=== PATIENT | female | born 1930 | race Caucasian/White ===

== ENCOUNTER 2017-09-28 16:42 | Inpatient (IN) | payer OTHER ==
[~2017-09-28] VITALS: Ht 160 cm; Wt 68.0 kg
[~2017-09-28 16:42] MED LIST: ASPI-321 OR; CLON0.5T3 PO; CLXOPO OP; DSY50 PO; GLCSC500400; LEVO112T6 GT; NAPR1TAB9 PO; PARO1TAB27 PO; SIMV10TA5 OR; TRIA0.1C20
[2017-09-28] MEDS ORDERED: ONDANSETRON INJ 2 MG/ML 2 ML VIAL IV STA (17:29)
[2017-09-28] MEDS ORDERED: ALBUT/IPRATROP 3MG/0.5MG NEB 3 ML VIAL INH STA ×2 (17:29→20:36)
[2017-09-28] MEDS ORDERED: MoRPHine SULFATE 4 MG/ML 1 ML CARP\\VIAL IV PRN (17:30)
--- NOTE | 2017-09-28 18:06 | DIAGNOSTIC IMAGING REPORT ---
CHEST ONE VIEW PORTABLE CLINICAL HISTORY: fall LEFT WRIST PAIN COMPARISON STUDY: No previous studies for comparison. FINDINGS: The heart is borderline enlarged. There is no failure. There is no focal pulmonary consolidation. There are no pleural effusions. There is no pneumothorax. There are minor left basilar atelectatic changes.[ IMPRESSION: No active disease in the chest. Electronically signed by: Paras Noriega M.D. 09/28/2017 6:04 PM Dictated Date/Time: 09/28/2017 6:04 PM
--- NOTE | 2017-09-28 18:07 | DIAGNOSTIC IMAGING REPORT ---
L WRIST MIN 3 VIEWS ROUTINE CLINICAL HISTORY: Left wrist pain status post trauma COMPARISON: None. DISCUSSION: No acute fractures are visualized. There is chondrocalcinosis. Arthritic changes are present at the navicular trapezium articulation and first carpal metacarpal joint. IMPRESSION: 1. Chondrocalcinosis and degenerative change 2. No acute fractures or dislocations identified. Electronically signed by: Paras Noriega M.D. 09/28/2017 6:06 PM Dictated Date/Time: 09/28/2017 6:04 PM
[2017-09-28 18:26] LABS: BASO % 0.1 %; BASO ABS # 0.01 K/uL (0-0.2); EOS % 0.9 %; EOS ABS # 0.07 K/uL (0-0.5); HEMATOCRIT 31.3 % (37-47); HEMOGLOBIN 10.3 g/dL (12.0-16.0); IG# 0.05 K/uL (0.00-0.02); LYMPH % 27.3 %; LYMPH ABS # 2.05 K/uL (1.2-3.4); MEAN CELL VOLUME 87.4 fL (80-100); MEAN CORPUSCULAR HEMOGLOBIN 28.8 pg (25-34); MEAN CORPUSCULAR HGB CONC 32.9 g/dl (32-36); MEAN PLATELET VOLUME 10.4 fL (7.4-10.4); MONO % 29.7 %; MONO ABS # 2.23 K/uL (0.11-0.59); NEUT % 41.3 %; NEUT ABS # 3.09 K/uL (1.4-6.5); PLATELET COUNT 129 K/uL (130-400); RED CELL DISTRIBUTION WIDTH SD 50.7 fL (36.4-46.3)
[2017-09-28 18:44] LABS: ALBUMIN 3.1 gm/dl (3.4-5.0); CALCIUM 8.5 mg/dl (8.5-10.1); CREATININE 0.84 mg/dl (0.60-1.20); POTASSIUM 3.9 mmol/L (3.5-5.1)
[2017-09-28 18:47] LABS: TOTAL PROTEIN 6.7 gm/dl (6.4-8.2)
[2017-09-28] MEDS ORDERED: PARO1TAB27 PO (19:02)
[2017-09-28] MEDS ORDERED: OMEP20TA PO (19:02)
[2017-09-28] MEDS ORDERED: MULT-190 PO (19:02)
[2017-09-28] MEDS ORDERED: ASPI81TA28 PO (19:02)
[2017-09-28] MEDS ORDERED: TRAZ50TA35 PO (19:02)
[2017-09-28] MEDS ORDERED: GLUC1CAP33 PO (19:03)
[2017-09-28] MEDS ORDERED: CLON0.5T3 PO (19:05)
--- NOTE | 2017-09-28 19:10 | DIAGNOSTIC IMAGING REPORT ---
CT HEAD WITHOUT CONTRAST (CT) CLINICAL HISTORY: Head pain status post trauma COMPARISON STUDY: No previous studies for comparison. TECHNIQUE: Axial CT of the brain is performed from the vertex to the skull base. IV contrast was not administered for this examination. A dose lowering technique was utilized adhering to the principles of ALARA. CT DOSE: 1007.26 mGy.cm FINDINGS: No intra or extra-axial mass lesions are visualized. There is no CT evidence of acute cortical infarction. There is no evidence of midline shift. There is no acute hemorrhage. No calvarial fractures are visualized. There are moderate white matter hypodensities likely on a small vessel basis. There is no evidence of pathologic ventricular dilatation. There is no evidence of acute sinusitis IMPRESSION: No acute intracranial findings Electronically signed by: Paras Noriega M.D. 09/28/2017 7:09 PM Dictated Date/Time: 09/28/2017 7:08 PM
--- NOTE | 2017-09-28 19:14 | DIAGNOSTIC IMAGING REPORT ---
CT OF THE CERVICAL SPINE CLINICAL HISTORY: Neck pain status post trauma COMPARISON STUDY: No previous studies for comparison. CT DOSE: TECHNIQUE: CT scan of the cervical spine was performed from the skull base to the thoracic inlet. Images are reviewed in the axial, sagittal, and coronal planes. IV contrast was not administered for this examination. A dose lowering technique was utilized adhering to the principles of ALARA. FINDINGS: The visualized portions of the lung apices reveal no evidence of pneumothorax. The prevertebral soft tissues are normal. No fractures or traumatic subluxations are visualized. There is reversal the normal cervical lordosis. Minimal anterolisthesis of C2 on C3 and C3 on C4 is felt to be secondary to neck flexion. IMPRESSION: 1. Reversal normal cervical lordosis 2. No fractures identified 3. Mild anterolisthesis of C2 on C3 and C3 on C4, likely secondary to neck flexion. If there is concern over the presence of a ligamentous injury, an MRI could be obtained in follow-up. Electronically signed by: Paras Noriega M.D. 09/28/2017 7:13 PM Dictated Date/Time: 09/28/2017 7:09 PM
[2017-09-28] MEDS ORDERED: METHYLPREDNISOLONE 125 MG VIAL IV STA (20:36)
[2017-09-28] MEDS ORDERED: HEPARIN SOD 5000 UNIT/0.5 ML CARP SQ SCH (22:45)
[2017-09-28] MEDS ORDERED: ACETAMINOPHEN 325 MG TAB PO PRN (22:45)
[2017-09-28 22:58] VITALS: O2SAT 90; Ht 160 cm; Wt 68.0 kg
[2017-09-28] MEDS ORDERED: LEVO137T3 PO (22:59)
--- NOTE | 2017-09-28 23:04 | History and Physical ---
History & Physical Date & Time of Service: Sep 28, 2017 at 22:30 Chief Complaint: Fell T-1,L Hand/Arm Cannot Move W/O Pain,Swollen Primary Care Physician: Everton Winkler M.D. (MEDICAL) History of Present Illness Source: patient, family (duaghter at bedside), clinic records, hospital records This is an 87yo F with a PMH of hypothyroidism, anxiety, HLD, GERD, osteoporosis and other medical problems listed below who presents with left wrist pain x 2 days. History was obtained from daughter due to patient being extremely hard of hearing. Two nights ago, patient was up at 2am and was trying to swat a bug when she lost her balance and fell forward onto her chest, face and L wrist. Daughter clarifies that this is normal behavior for patient, who gets up throughout the night. Daughter, who lives with patient, heard a thud and found patient face down as described. Denies any LOC. During the fall, patient also cut her upper lip. L arm pain persisted throughout the day so daughter brought patient to ED for further evaluation. Left wrist XRs did not show any acute fracture or dislocation so wrist was iced and splinted. Denies any headache, visual changes, confusion or active bleeding. Incidentally patient was found to be hypoxic at 88% on admission. Patient is not on O2 at home and does not regularly check her home O2. Per daughter, O2 sats are normally in the 90s during out-patient vitals checks. Patient quit smoking in 2007 after a 70 year history. Daughter states that she has a chronic cough but does not have dyspnea on exertion or SOB. Had a significant URI over the summer that lasted for months. Has never been evaluated for COPD. Denies a history of asthma. Endorses chronic cough but denies sore throat, congestion, dyspnea on exertion, SOB, palpitations, chest pain, abd pain, nausea, vomiting or LE swelling. Past Medical/Surgical History Medical Problems: (1) Anxiety Status: Chronic (2) GERD (gastroesophageal reflux disease) Status: Chronic (3) Hyperlipidemia Status: Chronic (4) Hypothyroidism Status: Chronic (5) Osteoporosis Status: Chronic (6) Skin cancer Status: Resolved (7) Vitamin D deficiency Status: Chronic Family History Cancer Gallbladder disease Kidney disease Kidney stones Lung disease Social History Smoking Status: Former Smoker (70 pack years ) Alcohol Use: none Housing status: lives with family (in an apartment connected to family home) Multi-Drug Resistant Organisms History of MDRO: No Allergies Coded Allergies: No Known Allergies (Verified Allergy, Unknown, 04/01/05) Home Medications Scheduled Aspirin (Aspirin Ec), 81 MG PO DAILY Clonazepam (Klonopin), 0.5 MG PO BID Glucosamine-Chondroitin (Glucosamine & Chondroitin 500-400 mg), 1 CAP PO DAILY Levothyroxine Sodium (Levothyroxine Sodium), 1 TAB PO DAILY Ocuvite Preservision (Ocuvite Preservision), 1 TAB PO DAILY Omeprazole (Omeprazole), 20 MG PO DAILY Paroxetine (Paxil), 20 MG PO DAILY Simvastatin (Zocor), 10 MG OR DAILY Trazodone Hcl (Trazodone), 50 MG PO HS Review of Systems Ten systems reviewed and negative except as noted in the HPI. Physical Exam Vital Signs Date Time Temp Pulse Resp B/P (MAP) Pulse Ox O2 Delivery O2 Flow Rate FiO2 09/28/17 22:25 93 20 104/74 94 Nasal Cannula 4.0 09/28/17 21:40 91 09/28/17 20:47 92 24 137/65 98 Mask 6.0 09/28/17 19:43 87 20 119/59 99 Nasal Cannula 3.0 09/28/17 18:59 87 18 131/69 93 Nasal Cannula 2.0 09/28/17 17:25 94 09/28/17 16:59 94 Nasal Cannula 2.0 09/28/17 16:59 94 Nasal Cannula 2.0 09/28/17 16:47 36.9 99 20 111/71 88 Room Air General Appearance: no apparent distress, + pertinent finding (Breathing comfortably with NC O2) Head: normocephalic, atraumatic Eyes: normal inspection, PERRL, sclerae normal ENT: normal ENT inspection (extremely hard of hearing), pharynx normal (moist mucous membranes) Neck: supple, thyroid normal, trachea midline Respiratory/Chest: chest non-tender, no respiratory distress, no accessory muscle use, + pertinent finding (Faint expiratory wheezes) Cardiovascular: regular rate, rhythm, no murmur, normal peripheral pulses Abdomen/GI: non tender, soft, no organomegaly Back: normal inspection Extremities/Musculoskelatal: normal inspection, no calf tenderness, normal capillary refill, no pedal edema Neurologic/Psych: no motor/sensory deficits, alert, normal mood/affect, oriented x 3 (Not oriented to situation ) Skin: normal color, warm/dry, + pertinent finding (Brusing to chin, upper lip with scab. L wrist splinted. ) Diagnostics Laboratory Results Results Past 24 Hours Test 09/28/17 18:15 Range/Units White Blood Count 7.50 4.8-10.8 K/uL Red Blood Count 3.58 4.2-5.4 M/uL Hemoglobin 10.3 12.0-16.0 g/dL Hematocrit 31.3 37-47 % Mean Corpuscular Volume 87.4 80-100 fL Mean Corpuscular Hemoglobin 28.8 25-34 pg Mean Corpuscular Hemoglobin Concent 32.9 32-36 g/dl Platelet Count 129 130-400 K/uL Mean Platelet Volume 10.4 7.4-10.4 fL Neutrophils (%) (Auto) 41.3 % Lymphocytes (%) (Auto) 27.3 % Monocytes (%) (Auto) 29.7 % Eosinophils (%) (Auto) 0.9 % Basophils (%) (Auto) 0.1 % Neutrophils # (Auto) 3.09 1.4-6.5 K/uL Lymphocytes # (Auto) 2.05 1.2-3.4 K/uL Monocytes # (Auto) 2.23 0.11-0.59 K/uL Eosinophils # (Auto) 0.07 0-0.5 K/uL Basophils # (Auto) 0.01 0-0.2 K/uL RDW Standard Deviation 50.7 36.4-46.3 fL RDW Coefficient of Variation 16.0 11.5-14.5 % Immature Granulocyte % (Auto) 0.7 % Immature Granulocyte # (Auto) 0.05 0.00-0.02 K/uL Sodium Level 136 136-145 mmol/L Potassium Level 3.9 3.5-5.1 mmol/L Chloride Level 101 98-107 mmol/L Carbon Dioxide Level 28 21-32 mmol/L Anion Gap 7.0 3-11 mmol/L Blood Urea Nitrogen 15 7-18 mg/dl Creatinine 0.84 0.60-1.20 mg/dl Est Creatinine Clear Calc Drug Dose 41.2 ml/min Estimated GFR () 71.4 Estimated GFR (Non- 61.6 BUN/Creatinine Ratio 17.5 10-20 Random Glucose 90 70-99 mg/dl Calcium Level 8.5 8.5-10.1 mg/dl Total Bilirubin 0.4 0.2-1 mg/dl Aspartate Amino Transf (AST/SGOT) 15 15-37 U/L Alanine Aminotransferase (ALT/SGPT) 14 12-78 U/L Alkaline Phosphatase 65 45-117 U/L Total Protein 6.7 6.4-8.2 gm/dl Albumin 3.1 3.4-5.0 gm/dl Globulin 3.6 2.5-4.0 gm/dl Albumin/Globulin Ratio 0.9 0.9-[address] head: IMPRESSION: No acute intracranial findings Left wrist XR: IMPRESSION: 1. Chondrocalcinosis and degenerative change 2. No acute fractures or dislocations identified. CT cervical spine: IMPRESSION: 1. Reversal normal cervical lordosis 2. No fractures identified 3. Mild anterolisthesis of C2 on C3 and C3 on C4, likely secondary to neck flexion. If there is concern over the presence of a ligamentous injury, an MRI could be obtained in follow-up. Impression Assessment and Plan This is an 87yo F with a PMH of hypothyroidism, anxiety, osteoporosis and other medical problems listed below who presents with left wrist pain x 2 days. Hypoxia 2/2 COPD exacerbation: -Incidentally found to be hypoxic to 88% -O2 saturation decreases to 85-86% with exertion like sitting upright -Has a 70 year smoking history, so likely underlying COPD, although undiagnosed -Saturating well on 6L NC O2. Wean as tolerated -Likely will need to be sent home on chronic O2 -Solu-medrol, duonebs -Echo in AM to rule out cardiac etiology -CXR clear, no leukocytosis, so no antibiotics given. Left wrist pain: -S/p mechanical fall 2 nights ago -Wrist XR without dislocation or fracture -Splinted in ED -Pain control -Ortho out-patient follow up Mechanical fall: -No LOC -CT head without acute changes -Bruising observed on chin, lip, L arm -No active bleeding -Pain control Hypothyroidism: -Dose recently increased -Cont synthroid Anxiety: -Cont paxil, klonopin HLD: -Cont statin GERD: -Cont PPI DVT Ppx: SQ heparin Code status: FULL per discussion with daughter (POA) PCP: [facility] Dispo: Admitted to [facility]. Plan to return home once medically stable. Patient seen in collaboration with Dr. Molina. Please see addendum. Attending Physician, Dr. Molina. addendum I have seen and assessed the patient with SADIA Tatum and agree with the assessment and plan. This is an 87 year old F who presented to the ED primarily for treatment of left wrist pain. However was admitted to internal medicine hospitalist service for hypoxia. Patient not diagnosed with COPD in the past however has significant smoking history. For treatment of hypoxia, have started patient on nebulizer treatments on solumedrol. There does not appear to be lung infiltrates so antibiotics is to be held at this time. Alternatively, patient may have cardiac reasons for hypoxia and echocardiogram has been ordered to investigate whether hypoxia may be from pulmonary hypertension or valvular disease. Otherwise patient is clinically stable. Level of Care Med/Surg Resuscitation Status FULL RESUSCITATION VTE Prophylaxis VTE Risk Assessment Done? Y/N: Yes Risk Level: Moderate Given or contraindicated: Unfractionated heparin SQ
[2017-09-28] MEDS ORDERED: TRAMADOL HCL 50 MG TAB PO PRN (23:15)
[2017-09-28 23:45] VITALS: BP 116/66; PULSE 88; TEMP 36.9; O2SAT 93
--- NOTE | 2017-09-29 00:07 | EMERGENCY ROOM VISIT NOTE ---
History Report prepared by Zahira: Florentino Duffy Under the Supervision of: Dr. Van Santiago M.D. First contact with patient: 17:11 Chief Complaint: FALL Stated Complaint: FELL T-1,L HAND/ARM CANNOT MOVE W/O PAIN,SWOLLEN History of Present Illness The patient is an 87 year old female who presents to the Emergency Room with complaints of a sudden fall occurring yesterday morning. The patient's daughter states that the patient was trying to swat a lady bug and lost her balance. She fell on outstretched hand and hit her face, chest, and her left forearm. The patient states that she cut her lip, and currently she is having some chest pain and left forearm pain. She additionally states that she is having chronic back pain, though she is not having any more back pain than usual after the fall. The patient's left forearm pain is worsened with movement and palpation. Additionally, the patient's daughter states that the patient was a smoker for 70 years, and she quit ten years ago. Pt denies LOC, headache, visual changes, neck pain, breathing difficulties, nausea, vomiting, abdominal pain, numbness, weakness, open wounds, active bleeding, or other complaints. Source of History: patient Onset: yesterday morning Position: other (global) Quality: other (fall) Timing: other (sudden) Modifying Factors (Worsening): movement, other (palpation) Associated Symptoms: + chest pain Note: Associated symptoms: Left forearm pain Review of Systems See HPI for pertinent positives and negatives. A total of ten systems were reviewed and were otherwise negative. Past Medical & Surgical Medical Problems: (1) Anxiety (2) GERD (gastroesophageal reflux disease) (3) Hyperlipidemia (4) Hypothyroidism (5) Osteoporosis (6) Skin cancer (7) Vitamin D deficiency Surgical Problems: (1) History of appendectomy Family History Cancer Gallbladder disease Kidney disease Kidney stones Lung disease Social History Smoking Status: Former Smoker Marital Status: Housing Status: lives with family Occupation Status: retired Current/Historical Medications Scheduled Aspirin (Aspirin Ec), 81 MG PO DAILY Clonazepam (Klonopin), 0.5 MG PO BID Glucosamine-Chondroitin (Glucosamine & Chondroitin 500-400 mg), 1 CAP PO DAILY Levothyroxine Sodium (Levothyroxine Sodium), 1 TAB PO DAILY Ocuvite Preservision (Ocuvite Preservision), 1 TAB PO DAILY Omeprazole (Omeprazole), 20 MG PO DAILY Paroxetine (Paxil), 20 MG PO DAILY Simvastatin (Zocor), 10 MG OR DAILY Trazodone Hcl (Trazodone), 50 MG PO HS Allergies Coded Allergies: No Known Allergies (Verified Allergy, Unknown, 04/01/05) Physical Exam Vital Signs Date Time Temp Pulse Resp B/P (MAP) Pulse Ox O2 Delivery O2 Flow Rate FiO2 09/28/17 22:25 93 20 104/74 94 Nasal Cannula 4.0 09/28/17 21:40 91 09/28/17 20:47 92 24 137/65 98 Mask 6.0 09/28/17 19:43 87 20 119/59 99 Nasal Cannula 3.0 09/28/17 18:59 87 18 131/69 93 Nasal Cannula 2.0 09/28/17 17:25 94 09/28/17 16:59 94 Nasal Cannula 2.0 09/28/17 16:59 94 Nasal Cannula 2.0 09/28/17 16:47 36.9 99 20 111/71 88 Room Air Physical Exam GENERAL: Awake, alert, well appearing, no distress. Hard of hearing. HEAD: Bruise on the chin. Abrasion to the upper lip. Normocephalic. No mckenna sign. No raccoon eyes. EYES: Normal conjunctiva. PERRL. EARS: External ears normal. Right TM normal. Left TM normal. NOSE: Atraumatic OROPHARYNX: Lips, tongue, and mucosa unremarkable. No erythema or exudate. NECK: Supple No tracheal deviation or JVD. No posterior midline tenderness. No step offs noted. RESPIRATORY: CTA bilaterally CARDIAC: regular rate, normal rhythm. ABDOMEN: Inspection reveals no abnormalities. Soft, non distended. No tenderness to palpation. No hernias. BACK: No midline step offs or tenderness to palpation. Unremarkable. PELVIS: Stable to rock. SKIN: Normal. LYMPH: No adenopathy. MUSCULOSKELETAL: Tenderness in the left wrist over the snuff box. Range of motion is limited. No active bleeding. Lower extremities and right upper extremity are atraumatic. NEURO: GCS 15. Normal sensorium. No sensory or motor deficits noted. Medical Decision & Procedures ER Provider Diagnostic Interpretation: Radiology results as stated below per my review and radiologist interpretation: L WRIST MIN 3 VIEWS ROUTINE CLINICAL HISTORY: Left wrist pain status post trauma COMPARISON: None. DISCUSSION: No acute fractures are visualized. There is chondrocalcinosis. Arthritic changes are present at the navicular trapezium articulation and first carpal metacarpal joint. IMPRESSION: 1. Chondrocalcinosis and degenerative change 2. No acute fractures or dislocations identified. Electronically signed by: Paras Noriega M.D. 09/28/2017 6:06 PM Dictated Date/Time: 09/28/2017 6:[address] HEAD WITHOUT CONTRAST (CT) CLINICAL HISTORY: Head pain status post trauma COMPARISON STUDY: No previous studies for comparison. TECHNIQUE: Axial CT of the brain is performed from the vertex to the skull base. IV contrast was not administered for this examination. A dose lowering technique was utilized adhering to the principles of ALARA. CT DOSE: 1007.26 mGy.cm FINDINGS: No intra or extra-axial mass lesions are visualized. There is no CT evidence of acute cortical infarction. There is no evidence of midline shift. There is no acute hemorrhage. No calvarial fractures are visualized. There are moderate white matter hypodensities likely on a small vessel basis. There is no evidence of pathologic ventricular dilatation. There is no evidence of acute sinusitis IMPRESSION: No acute intracranial findings Electronically signed by: Paras Noriega M.D. 09/28/2017 7:09 PM Dictated Date/Time: 09/28/2017 7:08 PM CHEST ONE VIEW PORTABLE CLINICAL HISTORY: fall LEFT WRIST PAIN COMPARISON STUDY: No previous studies for comparison. FINDINGS: The heart is borderline enlarged. There is no failure. There is no focal pulmonary consolidation. There are no pleural effusions. There is no pneumothorax. There are minor left basilar atelectatic changes.[ IMPRESSION: No active disease in the chest. Electronically signed by: Paras Noriega M.D. 09/28/2017 6:04 PM Dictated Date/Time: 09/28/2017 6:[address] OF THE CERVICAL SPINE CLINICAL HISTORY: Neck pain status post trauma COMPARISON STUDY: No previous studies for comparison. CT DOSE: TECHNIQUE: CT scan of the cervical spine was performed from the skull base to the thoracic inlet. Images are reviewed in the axial, sagittal, and coronal planes. IV contrast was not administered for this examination. A dose lowering technique was utilized adhering to the principles of ALARA. FINDINGS: The visualized portions of the lung apices reveal no evidence of pneumothorax. The prevertebral soft tissues are normal. No fractures or traumatic subluxations are visualized. There is reversal the normal cervical lordosis. Minimal anterolisthesis of C2 on C3 and C3 on C4 is felt to be secondary to neck flexion. IMPRESSION: 1. Reversal normal cervical lordosis 2. No fractures identified 3. Mild anterolisthesis of C2 on C3 and C3 on C4, likely secondary to neck flexion. If there is concern over the presence of a ligamentous injury, an MRI could be obtained in follow-up. Electronically signed by: Paras Noriega M.D. 09/28/2017 7:13 PM Dictated Date/Time: 09/28/2017 7:09 PM Laboratory Results 09/28/17 18:15 Red Blood Count 3.58, Mean Corpuscular Volume 87.4, Mean Corpuscular Hemoglobin 28.8, Mean Corpuscular Hemoglobin Concent 32.9, Mean Platelet Volume 10.4, Neutrophils (%) (Auto) 41.3, Lymphocytes (%) (Auto) 27.3, Monocytes (%) (Auto) 29.7, Eosinophils (%) (Auto) 0.9, Basophils (%) (Auto) 0.1, Neutrophils # (Auto ) 3.09, Lymphocytes # (Auto) 2.05, Monocytes # (Auto) 2.23, Eosinophils # (Auto ) 0.07, Basophils # (Auto) 0.01 09/28/17 18:15 Test 09/28/17 18:15 White Blood Count 7.50 K/uL (4.8-10.8) Red Blood Count 3.58 M/uL (4.2-5.4) Hemoglobin 10.3 g/dL (12.0-16.0) Hematocrit 31.3 % (37-47) Mean Corpuscular Volume 87.4 fL (80-100) Mean Corpuscular Hemoglobin 28.8 pg (25-34) Mean Corpuscular Hemoglobin Concent 32.9 g/dl (32-36) Platelet Count 129 K/uL (130-400) Mean Platelet Volume 10.4 fL (7.4-10.4) Neutrophils (%) (Auto) 41.3 % Lymphocytes (%) (Auto) 27.3 % Monocytes (%) (Auto) 29.7 % Eosinophils (%) (Auto) 0.9 % Basophils (%) (Auto) 0.1 % Neutrophils # (Auto) 3.09 K/uL (1.4-6.5) Lymphocytes # (Auto) 2.05 K/uL (1.2-3.4) Monocytes # (Auto) 2.23 K/uL (0.11-0.59) Eosinophils # (Auto) 0.07 K/uL (0-0.5) Basophils # (Auto) 0.01 K/uL (0-0.2) RDW Standard Deviation 50.7 fL (36.4-46.3) RDW Coefficient of Variation 16.0 % (11.5-14.5) Immature Granulocyte % (Auto) 0.7 % Immature Granulocyte # (Auto) 0.05 K/uL (0.00-0.02) Anion Gap 7.0 mmol/L (3-11) Est Creatinine Clear Calc Drug Dose 41.2 ml/min Estimated GFR () 71.4 Estimated GFR (Non- 61.6 BUN/Creatinine Ratio 17.5 (10-20) Calcium Level 8.5 mg/dl (8.5-10.1) Total Bilirubin 0.4 mg/dl (0.2-1) Aspartate Amino Transf (AST/SGOT) 15 U/L (15-37) Alanine Aminotransferase (ALT/SGPT) 14 U/L (12-78) Alkaline Phosphatase 65 U/L (45-117) Total Protein 6.7 gm/dl (6.4-8.2) Albumin 3.1 gm/dl (3.4-5.0) Globulin 3.6 gm/dl (2.5-4.0) Albumin/Globulin Ratio 0.9 (0.9-2) Laboratory results reviewed by me Medications Administered Medications (Trade) Dose Ordered Sig/Lola Route Start Time Stop Time Status Last Admin Dose Admin Ondansetron HCl (Zofran Inj) 4 mg NOW STAT IV 09/28/17 17:29 09/28/17 17:33 DC 09/28/17 18:11 4 MG Morphine Sulfate (MoRPHine SULFATE INJ) 4 mg Q15M PRN IV 09/28/17 17:30 10/12/17 17:29 09/28/17 18:12 4 MG Albuterol/ Ipratropium (Duoneb) 3 ml NOW STAT INH 09/28/17 17:29 09/28/17 17:33 DC 09/28/17 18:11 3 ML Methylprednisolone Sodium Succinate (Solu-Medrol IV) 125 mg NOW STAT IV 09/28/17 20:36 09/28/17 20:38 DC 09/28/17 20:45 125 MG Albuterol/ Ipratropium (Duoneb) 3 ml NOW STAT INH 09/28/17 20:36 09/28/17 20:38 DC 09/28/17 20:45 3 ML ED Course 171: The patient was evaluated in room B3. A complete history and physical exam was performed. 1728: DuoNeb 3ml INH, Zofran 4mg IV 1729: Morphine Sulfate 4mg IV 1944: Upon reexamination, the patient was still needing oxygen. 2035: DuoNeb 3ml INH, Solu-Medrol 125mg IV 2110: Upon reexamination, the patient was doing okay. I discussed the test results and treatment plan with her. The patient will be evaluated for further management. 2124: Discussed the patient's case with Tayla Torres. The patient will be evaluated for further treatment and disposition. Medical Decision Triage Nursing notes reviewed. The patient's presentation and history were concerning for a fall. Etiologies such as soft tissue injury, fracture, dislocation, neurovascular compromise, compartment syndrome, as well as others were entertained. The patient presented after an accidental fall yesterday. She had mild soft tissue contusions and injury to her face. She had no neck discomfort on physical examination and had good range of motion. She did have moderate left wrist tenderness. There was some associated bruising. Pain is mainly with movement of the wrist. She had also noted some wheezing prior to arrival. The patient's pulse oximetry was mildly low. She has a significant smoking history. She was placed on supplemental oxygen and responded well. Her CT imaging was unremarkable. Radiology questioned her anterolisthesis. The patient was reexamined and had no complaints of neck pain but notes a long history of intermittent aches and pains in her neck. She currently has none. The patient had a splint placed on her arm for comfort and immobilization. X- ray imaging revealed significant arthritic change without evidence of fracture or dislocation. The patient was neurovascularly intact. Chest imaging did not reveal any evidence of pneumonia or thoracic injury. She was given 2 breathing treatments and a dose of IV Solu-Medrol. She was still requiring supplemental oxygen which is not normal for her. Because of this further evaluation and management in the hospital is necessary. Consultation was made with internal medicine. The patient was evaluated in the Emergency Room for further management. Medication Reconcilliation Current Medication List: was personally reviewed by me Blood Pressure Screening Patient's blood pressure: Normal blood pressure Consults Time Called: 2110 Consulting Physician: Tayla Tatum Returned Call: [phone] Discussed the patient's case with Tayla Torres. The patient will be evaluated for further treatment and disposition. Impression Primary Impression: Hypoxia Additional Impressions: COPD (chronic obstructive pulmonary disease) Contusion of left wrist Facial contusion Fall Scribe Attestation The scribe's documentation has been prepared under my direction and personally reviewed by me in its entirety. I confirm that the note above accurately reflects all work, treatment, procedures, and medical decision making performed by me. Departure Information Dispostion Being Evaluated By Hospitalist Referrals Everton Winkler M.D. (MEDICAL) (PCP) Patient Instructions My [facility] Problem Qualifiers
[2017-09-29] MEDS: METHYLPREDNISOLONE IV 40 MG in SYRINGE 0 ML IV SCH ×2 (04:07→11:37)
[2017-09-29] MEDS: LEVOTHYROXINE 137 MCG TAB PO SCH (06:37)
[2017-09-29 07:14] VITALS: BP 116/66; PULSE 73; TEMP 36.7; O2SAT 93
[2017-09-29 07:16] VITALS: PULSE 75; O2SAT 92
[2017-09-29] MEDS: ALBUT/IPRATROP 3MG/0.5MG NEB 3 ML VIAL INH SCH ×3 (07:16→19:02)
[2017-09-29 08:00] VITALS: O2SAT 93
[2017-09-29] MEDS ORDERED: PNEUMOCOCCAL ADMINISTRATION CHARGE ONE (08:00)
[2017-09-29] MEDS ORDERED: PNEUMOCOCCAL POLYSACCHARIDES 25 MCG/0.5 ML VIAL/SYR IM. ONE (08:00)
[2017-09-29 08:13] LABS: HEMATOCRIT 31.3 % (37-47); HEMOGLOBIN 10.3 g/dL (12.0-16.0); MEAN CELL VOLUME 87.7 fL (80-100); MEAN CORPUSCULAR HEMOGLOBIN 28.9 pg (25-34); MEAN CORPUSCULAR HGB CONC 32.9 g/dl (32-36); MEAN PLATELET VOLUME 10.3 fL (7.4-10.4); PLATELET COUNT 122 K/uL (130-400); RED CELL DISTRIBUTION WIDTH CV 16.2 % (11.5-14.5); RED CELL DISTRIBUTION WIDTH SD 51.3 fL (36.4-46.3); WHITE BLOOD COUNT 4.43 K/uL (4.8-10.8)
[2017-09-29 08:41] LABS: CALCIUM 8.4 mg/dl (8.5-10.1); CREATININE 0.95 mg/dl (0.60-1.20); POTASSIUM 4.3 mmol/L (3.5-5.1)
[2017-09-29] MEDS: CLONAZEPAM 0.5 MG TAB PO SCH ×2 (08:55→20:49)
[2017-09-29] MEDS: CEROVITE ADV FORMULA TAB PO SCH (08:55)
[2017-09-29] MEDS: ASPIRIN 81 MG ECTAB PO SCH (08:56)
[2017-09-29] MEDS: PAROXETINE 20 MG TAB PO SCH (08:56)
[2017-09-29] MEDS: PANTOprazole SOD 40 MG TAB PO SCH (08:56)
[2017-09-29] MEDS ORDERED: OPTIRAY 320 IV PRN (14:00)
[2017-09-29 15:28] VITALS: BP 122/72; PULSE 89; TEMP 36.7; O2SAT 92
--- NOTE | 2017-09-29 17:41 | ECHOCARDIOGRAM REPORT ---
*NOTICE TO RECEIVING CONSTITUTION PARTY AGENCY This information is strictly Confidential and protected under [place] law. [place] law prohibits you from making any further disclosure of this information unless further disclosure is expressly permitted by the written consent of the person to whom it pertains or is authorized by law. A general authorization for the release of medical or other information is not sufficient for this purpose. Hospital accepts no responsibility if the information is made available to any other person, INCLUDING THE PATIENT. Interpretation Summary * Name: TRISTEN RIVERO Study Date: 09/29/2017 01:21 PM BP: 116/66 mmHg * Patient Location: .[id number]\S\2 HR: 88 * : 1930 (M/d/yyyy) Gender: Female Height: 63 in * Age: 87 yrs Ethnicity: [place] Weight: 143 lb * Ordering Physician: Tayla Tatum * Referring Physician: Self, Referred * Performed By: Rema Amaya RCS * * Reason For Study: HYPOXIA * BSA: 1.7 m2 * The study was technically adequate. * There is no comparison study available. * -- Conclusions -- * The left ventricle is hyperdynamic. * Ejection Fraction = >70 %. * There is mild concentric left ventricular hypertrophy. * Aortic valve sclerosis moderate, without significant aortic valvular stenosis. * There is trace tricuspid regurgitation. * The estimated systolic PAP is 44mmHg. Procedure Details * A complete two-dimensional transthoracic echocardiogram was performed (2D, M-mode, Doppler and color flow Doppler). Left Ventricle * The left ventricle is normal in size. * There is no thrombus. * There is mild concentric left ventricular hypertrophy. * Ejection Fraction = >70 %. * The left ventricle is hyperdynamic. * The left ventricular wall motion is normal. Right Ventricle * The right ventricle is normal size. * The right ventricular systolic function is normal as assessed by tricuspid annular plane systolic excursion (TAPSE) (normal >1.5 cm). Atria * The left atrial size is normal. * Right atrial size is normal. * There is no evidence of atrial septal defect, but resolution does not allow assessment for a patent foramen ovale. Mitral Valve * The mitral valve leaflets appear thickened, but open well. * There is no mitral valve stenosis. * Significant mitral regurgitation is absent. Tricuspid Valve * The tricuspid valve is normal. * There is no tricuspid stenosis. * There is trace tricuspid regurgitation. * The estimated systolic PAP is 44mmHg. Aortic Valve * The aortic valve is trileaflet. * Aortic valve sclerosis moderate, without significant aortic valvular stenosis. * Aortic stenosis is absent. * There is no significant aortic regurgitation. Pulmonic Valve * The pulmonary valve is not well seen, but the Doppler examination is normal without significant regurgitation or stenosis. Great Vessels * The aortic root is normal size. Pericardium/Pleural * There is no pericardial effusion. Great Vessels * IVC not well visualized. Left Ventricular Diastolic Function * Pulse wave TDI of the anterior and posterior mitral annulas demonstrates normal LV relaxation MMode 2D Measurements and Calculations IVSd 1.4 cm IVSs 1.7 cm LVIDd 3.2 cm LVIDs 2.5 cm LVPWd 1.2 cm LVPWs 1.6 cm IVS/LVPW 1.2 FS 23.2 % EDV(Teich) 42.3 ml ESV(Teich) 22.1 ml EF(Teich) 47.8 % EDV(cubed) 34.1 ml ESV(cubed) 15.4 ml EF(cubed) 54.8 % % IVS thick 23.2 % % LVPW thick 36.3 % LV mass(C)d 139.2 grams LV mass(C)dI 83.0 grams/m\S\2 LV mass(C)s 155.7 grams LV mass(C)sI 92.9 grams/m\S\2 SV(Teich) 20.2 ml SI(Teich) 12.0 ml/m\S\2 SV(cubed) 18.6 ml SI(cubed) 11.1 ml/m\S\2 Ao root diam 3.1 cm Ao root area 7.3 cm\S\2 ACS 1.3 cm LA dimension 2.6 cm LA/Ao 0.84 LVOT diam 2.0 cm LVOT area 3.3 cm\S\2 LVAd ap4 27.0 cm\S\2 LVLd ap4 7.4 cm EDV(MOD-sp4) 81.1 ml EDV(sp4-el) 83.3 ml LVAs ap4 13.1 cm\S\2 LVLs ap4 6.3 cm ESV(MOD-sp4) 24.5 ml ESV(sp4-el) 23.1 ml EF(MOD-sp4) 69.8 % EF(sp4-el) 72.3 % SV(MOD-sp4) 56.7 ml SI(MOD-sp4) 33.8 ml/m\S\2 SV(sp4-el) 60.2 ml SI(sp4-el) 35.9 ml/m\S\2 Doppler Measurements and Calculations MV E max antwan 101.9 cm/sec MV A max antwan 142.9 cm/sec MV E/A 0.71 MV P1/2t max antwan 110.4 cm/sec MV P1/2t 70.8 msec MVA(P1/2t) 3.1 cm\S\2 MV dec slope 456.8 cm/sec\S\2 MV dec time 0.17 sec Ao V2 max 160.5 cm/sec Ao max PG 10.3 mmHg Ao max PG (full) 4.3 mmHg AUTUMN(V,A) 2.5 cm\S\2 AUTUMN(V,D) 2.5 cm\S\2 LV V1 max PG 6.0 mmHg LV V1 max 122.9 cm/sec TR max antwan 321.0 cm/sec
--- NOTE | 2017-09-29 17:48 | Progress Note ---
Internal Med Progress Note Date of Service: Sep 29, 2017. Provider Documentation: SUBJECTIVE: feels fine offers no complain , not ladan 02 talking in loud voice , very excited pt's Daughter and Son in law present at bedside concerned pt being so " hyper " -thinks possible related to IV steroids spo2 in room air noted to be 78% 3 L 02 applied via nasal canula ,remains hypoxic with spo2 in upper 80's increased 02 to 4 L to maintain spo2 90% pt denies of any feeling of SOB was not on home 02 per Daughter , pt able to climb up stairs with out any discomfort OBJECTIVE: Vital Signs-as noted below Exam: General-no sign of distress , very excited, laughing with family members Eyes-sclera non icteric , PERRLA/EOMI ENT-moist oral mucosa Neck-no thyromegaly , trachea mid line Lungs-CTA , no wheeze or rales noted Heart-regular , S1/S2 , no JVD , no lower ext edema Abdomen-soft, non tender , active bowel sound Extremities-no rash or deformity Neuro-Awake and alert ,very hard of hearing , no focal neurological deficit Lab data as noted below. ASSESSMENT & PLAN: This is an 87yo F with a PMH of hypothyroidism, anxiety, osteoporosis and other medical problems listed below who presents with left wrist pain x 2 days. ACUTE HYPOXEMIC RESPIRATORY FAILURE -Incidentally found to be hypoxic to 88% ( WAS NOT ON HOME 02 ) -O2 saturation decreases to 85-86% with minimum exertion /change of position -at present requiring 4 L 02 pt denies of any symptom of SOB even while spo2 drops to upper 70's -Has a 70 year smoking history, possibly has underlying COPD, nor formal diagnosis made , no PFT noted in past -will D/c IV solu Medrol , no wheeze noted started on PO prednisone taper - dedra -Echo : The left ventricle is hyperdynamic. * Ejection Fraction = >70 %. * There is mild concentric left ventricular hypertrophy. * Aortic valve sclerosis moderate, without significant aortic valvular stenosis. * There is trace tricuspid regurgitation. * The estimated systolic PAP is 44mmHg. -CXR -no active disease D dimer elevated > 1200 CT chest with contrast ordered to R/O PE -pulmonary eval requested Left wrist pain: -S/p mechanical fall 2 nights ago -Wrist XR without dislocation or fracture -Splinted in ED -Pain control -Ortho out-patient follow up Mechanical fall: -fell forward as she lost balance while trying to kill a bug -CT head without acute changes -Bruising observed on chin, lip, L arm -No active bleeding -Pain control Hypothyroidism: -Dose recently increased -Cont synthroid Anxiety: -Cont paxil, klonopin HLD: -Cont statin GERD: -Cont PPI DVT Ppx: SQ heparin Code status: FULL per discussion with daughter (POA) PCP: Peterson ELIAS pt lives with Daughter has been independent in her ADL's PT/OT eval requested may need 2 step oximetry test prior to discharge Vital Signs: Date Time Temp Pulse Resp B/P (MAP) Pulse Ox O2 Delivery O2 Flow Rate FiO2 09/29/17 19:07 102 16 78 Room Air 09/29/17 16:00 Nasal Cannula 3.0 09/29/17 15:28 36.7 89 19 122/72 (89) 92 Nasal Cannula 2.0 09/29/17 08:00 93 Nasal Cannula 3.0 09/29/17 07:16 75 16 92 Nasal Cannula 3.0 09/29/17 07:14 36.7 73 18 116/66 (83) 93 Nasal Cannula 3.0 09/29/17 02:30 Nasal Cannula 3.0 09/28/17 23:45 36.9 88 18 116/66 (83) 93 Nasal Cannula 3.0 09/28/17 23:00 85 20 112/50 93 Nasal Cannula 3.0 09/28/17 22:58 90 Nasal Cannula 4.0 Lab Results: Results Past 24 Hours Test 09/29/17 07:58 09/29/17 12:09 Range/Units White Blood Count 4.43 4.8-10.8 K/uL Red Blood Count 3.57 4.2-5.4 M/uL Hemoglobin 10.3 12.0-16.0 g/dL Hematocrit 31.3 37-47 % Mean Corpuscular Volume 87.7 80-100 fL Mean Corpuscular Hemoglobin 28.9 25-34 pg Mean Corpuscular Hemoglobin Concent 32.9 32-36 g/dl RDW Standard Deviation 51.3 36.4-46.3 fL RDW Coefficient of Variation 16.2 11.5-14.5 % Platelet Count 122 130-400 K/uL Mean Platelet Volume 10.3 7.4-10.4 fL Sodium Level 135 136-145 mmol/L Potassium Level 4.3 3.5-5.1 mmol/L Chloride Level 100 98-107 mmol/L Carbon Dioxide Level 26 21-32 mmol/L Anion Gap 9.0 3-11 mmol/L Blood Urea Nitrogen 20 7-18 mg/dl Creatinine 0.95 0.60-1.20 mg/dl Est Creatinine Clear Calc Drug Dose 37.2 ml/min Estimated GFR () 61.5 Estimated GFR (Non- 53.1 BUN/Creatinine Ratio 20.4 10-20 Random Glucose 188 70-99 mg/dl Calcium Level 8.4 8.5-10.1 mg/dl D-Dimer 1280 0-500 ug/L FEU
[2017-09-29 19:07] VITALS: PULSE 102; O2SAT 78
[2017-09-29] MEDS ORDERED: SIMVASTATIN 10 MG TAB PO SCH (21:00)
[2017-09-29] MEDS ORDERED: TRAZODONE HCL 50 MG TAB PO SCH (21:00)
[2017-09-29] MEDS ORDERED: SODIUM CHLORIDE 0.9% 1000ML 1,000 ML IV SCH (22:45)
[2017-09-30] VITALS (7 sets, daily range): BP systolic 145–149; BP diastolic 71–82; PULSE 77–97; TEMP 36.4–36.8; O2SAT 88–95
[2017-09-30] MEDS: LEVOTHYROXINE 137 MCG TAB PO SCH (06:31)
[2017-09-30] MEDS: ALBUT/IPRATROP 3MG/0.5MG NEB 3 ML VIAL INH SCH ×2 (07:24→16:07)
[2017-09-30 08:33] LABS: CALCIUM 8.1 mg/dl (8.5-10.1); CREATININE 1.08 mg/dl (0.60-1.20); POTASSIUM 4.6 mmol/L (3.5-5.1)
[2017-09-30] MEDS: PANTOprazole SOD 40 MG TAB PO SCH (08:47)
[2017-09-30] MEDS: ASPIRIN 81 MG ECTAB PO SCH (08:47)
[2017-09-30] MEDS: PAROXETINE 20 MG TAB PO SCH (08:47)
[2017-09-30] MEDS: CEROVITE ADV FORMULA TAB PO SCH (08:47)
[2017-09-30] MEDS: CLONAZEPAM 0.5 MG TAB PO SCH ×2 (08:52→16:03)
--- NOTE | 2017-09-30 12:41 | DIAGNOSTIC IMAGING REPORT ---
CT ANGIOGRAM OF THE CHEST CLINICAL HISTORY: Hypoxia. Elevated d-dimer. Possible pulmonary embolism. COMPARISON STUDY: Chest x-ray dated 09/28/2017 TECHNIQUE: Following the IV administration of 92 mL of Optiray-320, CT angiogram of the thorax was performed from the thoracic inlet to the lung bases utilizing the pulmonary embolus protocol. Images are reviewed in the axial, sagittal, and coronal planes. IV contrast was administered without complication. MIP imaging was performed. A dose lowering technique was utilized adhering to the principles of ALARA. CT DOSE: 369.79 mGy.cm FINDINGS: There is a partially visualized 7 cm left renal cyst. No pathologically enlarged axillary mediastinal or hilar lymph nodes were visualized. There was no evidence of thoracic aortic dilatation. Evaluation of subsegmental branches is limited due to respiratory motion artifact. No central emboli are visualized. There is mild enlargement of the main pulmonary trunk suggesting potential hypertension. No pleural effusions are visualized. There is moderate pulmonary emphysema. There is no focal pulmonary consolidation. There are mild basilar atelectatic changes. IMPRESSION: 1. Study mildly compromised due to respiratory motion artifact 2. No evidence of acute pulmonary embolism 3. There were no areas of focal pulmonary consolidation to indicate pneumonia 4. Emphysema 5. Bibasilar atelectasis Electronically signed by: Paras Noriega M.D. 09/30/2017 12:40 PM Dictated Date/Time: 09/30/2017 12:35 PM
--- NOTE | 2017-09-30 13:54 | Discharge Instructions ---
Discharge Instructions Date of Service Sep 30, 2017. Admission Reason for Admission: Hypoxia Discharge Discharge Diagnosis / Problem: COPD /FALL /WRIST PAIN Discharge Goals Goal(s): Improve function, Improve disease control, Diagnostic testing, Therapeutic intervention Activity Recommendations Activity Limitations: resume your previous activity . Instructions / Follow-Up Instructions / Follow-Up HOSPITAL FOLLOW UP : 10/06/2017 3:20 PM Everton Ramos MD [facility] WILL NEED PULMONARY FUNCTION TEST TO ASSESS SEVERITY OF EMPHYSEMA /COPD FOLLOW UP WITH PULMONOLOGY AT [facility] , PLEASE HAVE REFERRAL FORM FR RAMOS YOU WILL NEED HOME 0XYGEN 3 L AT REST AND 4 L WHILE WALKING , PLEASE UTILIZE OXYGEN DIRECTED ORTHOPEDICS FOLLOW UP WITH DR POLANCO IN A WEEK , PLEASE CALL OFFICE FOR APPOINTMENT DO NOT LIFT ANY WEIGHT ON LEFT HAND , OK TO USE SPOON DO NOT REMOVE THE PRESSURE DRESSING TILL EVALUATED BY ORTHOPEDICS CAN TAKE TYLENOL NEEDED FOR PAIN NOTIFY YOUR FAMILY PHYSICIAN WITH ANY INCREASING PAIN OR DISCOMFORT ON LEFT HAND OR ARM Current Hospital Diet Patient's current hospital diet: Regular Diet Discharge Diet Recommended Diet: Regular Diet Pending Studies Studies pending at discharge: no Medical Emergencies . Who to Call and When: Medical Emergencies: If at any time you feel your situation is an emergency, please call 911 immediately. . Non-Emergent Contact Non-Emergency issues call your: Primary Care Provider . . "Provider Documentation" section prepared by Lisa Leone. . VTE Core Measure Inpt VTE Proph given/why not?: Unfractionated heparin SQ
[2017-09-30] MEDS ORDERED: PRVHFAIN INH (13:57)
[2017-09-30] MEDS ORDERED: SPRIN INH (13:57)
--- NOTE | 2017-09-30 15:25 | Discharge Summary ---
Discharge Summary Date of Service Sep 30, 2017. Discharge Summary Admission Date: Sep 28, 2017 at 22:29 Discharge Date: Sep 30, 2017 Discharge Disposition: Home with services Principal Diagnosis: COPD /FALL /WRIST PAIN Procedures: CT CHEST WITH CONTRAST : IMPRESSION: 1. Study mildly compromised due to respiratory motion artifact 2. No evidence of acute pulmonary embolism 3. There were no areas of focal pulmonary consolidation to indicate pneumonia 4. Emphysema 5. Bibasilar atelectasis Medication Reconciliation New Medications: Albuterol (Ventolin Hfa) 60 Puffs/5400 Mcg Aers 2 PUFFS INH Q4 PRN for SOB/Wheezing, #1 INHALER 3 Refills Tiotropium [place] (Spiriva Handihaler) 5 Puff/90 Mcg Aerp 2 PUFF INH DAILY, #1 INHALER 3 Refills Continued Medications: Aspirin (Aspirin Ec) 81 Mg Tab 81 MG PO DAILY Clonazepam (Klonopin) 0.5 Mg Tab 0.5 MG PO BID, TAB Glucosamine-Chondroitin (Glucosamine & Chondroitin 500-400 mg) 1 Cap Cap 1 CAP PO DAILY Levothyroxine Sodium (Levothyroxine Sodium) 137 Mcg Tab 1 TAB PO DAILY for 30 Days, #30 TAB 5 Refills Ocuvite Preservision (Ocuvite Preservision) 1 Tab Tab 1 TAB PO DAILY, TAB Omeprazole (Omeprazole) 20 Mg Tab 20 MG PO DAILY, TAB 3 Refills Paroxetine (Paxil) 20 Mg Tab 20 MG PO DAILY, TAB Simvastatin (Zocor) 10 Mg Tab 10 MG OR DAILY Trazodone Hcl (Trazodone) 50 Mg Tab 50 MG PO HS, TAB Referrals At Discharge Follow up Referrals: Physician Referral - 10/06/17 with Everton Winkler M.D. (MEDICAL) Admission Information HPI (per Admitting provider): This is an 87yo F with a PMH of hypothyroidism, anxiety, HLD, GERD, osteoporosis and other medical problems listed below who presents with left wrist pain x 2 days. History was obtained from daughter due to patient being extremely hard of hearing. Two nights ago, patient was up at 2am and was trying to swat a bug when she lost her balance and fell forward onto her chest, face and L wrist. Daughter clarifies that this is normal behavior for patient, who gets up throughout the night. Daughter, who lives with patient, heard a thud and found patient face down as described. Denies any LOC. During the fall, patient also cut her upper lip. L arm pain persisted throughout the day so daughter brought patient to ED for further evaluation. Left wrist XRs did not show any acute fracture or dislocation so wrist was iced and splinted. Denies any headache, visual changes, confusion or active bleeding. Incidentally patient was found to be hypoxic at 88% on admission. Patient is not on O2 at home and does not regularly check her home O2. Per daughter, O2 sats are normally in the 90s during out-patient vitals checks. Patient quit smoking in 2007 after a 70 year history. Daughter states that she has a chronic cough but does not have dyspnea on exertion or SOB. Had a significant URI over the summer that lasted for months. Has never been evaluated for COPD. Denies a history of asthma. Endorses chronic cough but denies sore throat, congestion, dyspnea on exertion, SOB, palpitations, chest pain, abd pain, nausea, vomiting or LE swelling. Physical Exam (per Admitting): General Appearance: no apparent distress, + pertinent finding (Breathing comfortably with NC O2) Head: normocephalic, atraumatic Eyes: normal inspection, PERRL, sclerae normal ENT: normal ENT inspection (extremely hard of hearing), pharynx normal ( moist mucous membranes) Neck: supple, thyroid normal, trachea midline Respiratory/Chest: chest non-tender, no respiratory distress, no accessory muscle use, + pertinent finding (Faint expiratory wheezes) Cardiovascular: regular rate, rhythm, no murmur, normal peripheral pulses Abdomen/GI: non tender, soft, no organomegaly Back: normal inspection Extremities/Musculoskelatal: normal inspection, no calf tenderness, normal capillary refill, no pedal edema Neurologic/Psych: no motor/sensory deficits, alert, normal mood/affect, oriented x 3 (Not oriented to situation ) Skin: normal color, warm/dry, + pertinent finding (Brusing to chin, upper lip with scab. L wrist splinted. ) Hospital Course 2 step exercise done this AM -shows at rest pt requires 3 L 02 /4 L with ambulation script given , arrangements made for home 02 pt denies of any discomfort Daughter present , portable 02 tank delivered pt will be discharge home with daughter Home health visiting nurse arranged PHYSICAL EXAM : Vital Signs-as noted below Exam: General-no sign of distress , very excited, laughing with family members Eyes-sclera non icteric , PERRLA/EOMI ENT-moist oral mucosa Neck-no thyromegaly , trachea mid line Lungs-CTA , no wheeze or rales noted Heart-regular , S1/S2 , no JVD , no lower ext edema Abdomen-soft, non tender , active bowel sound Extremities-no rash or deformity Neuro-Awake and alert ,very hard of hearing , no focal neurological deficit A/P: ACUTE HYPOXEMIC RESPIRATORY FAILURE -Incidentally found to be hypoxic to 88% ( WAS NOT ON HOME 02 ) -O2 saturation decreases to 85-86% with minimum exertion /change of position -at present requiring 4 L 02 pt denies of any symptom of SOB even while spo2 drops to upper 70's -Has a 70 year smoking history, possibly has underlying COPD, nor formal diagnosis made , no PFT noted in past - duonebs -Echo : The left ventricle is hyperdynamic. * Ejection Fraction = >70 %. * There is mild concentric left ventricular hypertrophy. * Aortic valve sclerosis moderate, without significant aortic valvular stenosis. * There is trace tricuspid regurgitation. * The estimated systolic PAP is 44mmHg. -CXR -no active disease D dimer elevated > 1200 CT chest with contrast -no evidence of PE , emphysematous change -2 step exercise ordered , pt requires 3L o2 at rest and 4 L with ambulation arrangements made for home 02 pt is ordered for Spiriva INH , Albuterol INH Prn will need out pt PFT and pulmonology follow up Left wrist pain: -S/p mechanical fall 2 nights ago -Wrist XR without dislocation or fracture -Splinted in ED -Pain control -Ortho out-patient follow up in [address] Rodgers Hypothyroidism: -Cont Synthroid Anxiety: -Cont paxil, klonopin HLD: -Cont statin GERD: -Cont PPI DVT Ppx: SQ heparin Code status: FULL per discussion with daughter (POA) PCP: [facility] DISPOSITION stable to be discharged home today Medicine follow up with Dr Winkler Total time spent on discharge = 40 MINS This includes examination of the patient, discharge planning, medication reconciliation, and communication with other providers. Discharge Instructions Discharge Instructions Date of Service Sep 30, 2017. Admission Reason for Admission: Hypoxia Discharge Discharge Diagnosis / Problem: COPD /FALL /WRIST PAIN Discharge Goals Goal(s): Improve function, Improve disease control, Diagnostic testing, Therapeutic intervention Activity Recommendations Activity Limitations: resume your previous activity . Instructions / Follow-Up Instructions / Follow-Up HOSPITAL FOLLOW UP : 10/06/2017 3:20 PM Everton Winkler MD [facility] WILL NEED PULMONARY FUNCTION TEST TO ASSESS SEVERITY OF EMPHYSEMA /COPD YOU WILL NEED HOME 0XYGEN 3 L AT REST AND 4 L WHILE WALKING , PLEASE UTILIZE OXYGEN DIRECTED Current Hospital Diet Patient's current hospital diet: Regular Diet Discharge Diet Recommended Diet: Regular Diet Pending Studies Studies pending at discharge: no Medical Emergencies . Who to Call and When: Medical Emergencies: If at any time you feel your situation is an emergency, please call 911 immediately. . Non-Emergent Contact Non-Emergency issues call your: Primary Care Provider . . "Provider Documentation" section prepared by Lisa Leone. . VTE Core Measure Inpt VTE Proph given/why not?: Unfractionated heparin SQ Additional Copies To Everton Winkler M.D. (MEDICAL)
== END 2017-09-30 18:19 | disposition home health service (06) | DRG 190 ==
LOC: C.EDB 16:44 → EEVIPCON 22:29 → C.MS4W 22:29 → ENRESERV 22:42
PROVIDERS: ADMIT Hospitalist; ATTEND Hospitalist
DX: J44.1 Chronic obstructive pulmonary disease with (acute) exacerbation (principal); J96.01 Acute respiratory failure with hypoxia; G89.11 Acute pain due to trauma; M25.532 Pain in left wrist; S00.531A Contusion of lip, initial encounter; W01.0XXA Fall on same level from slipping, tripping and stumbling without subsequent striking against object, initial encounter; Y92.009 Unspecified place in unspecified non-institutional (private) residence as the place of occurrence of the external cause; E03.9 Hypothyroidism, unspecified; E78.5 Hyperlipidemia, unspecified; K21.9 Gastro-esophageal reflux disease without esophagitis; M81.0 Age-related osteoporosis without current pathological fracture; H91.90 Unspecified hearing loss, unspecified ear; F41.9 Anxiety disorder, unspecified; Z87.891 Personal history of nicotine dependence; Z79.82 Long term (current) use of aspirin; Z79.899 Other long term (current) drug therapy